=== PATIENT | male | born 1955 | race Caucasian/White ===

== ENCOUNTER 2017-01-03 07:17 | Inpatient (IN) ==
[2017-01-03] MEDS ORDERED: 0.9 % Sodium Chloride 1,000 ML ONE ×2 (07:21→07:24)
[2017-01-03] MEDS ORDERED: *HR* Heparin 5,000 UNIT/ML VIAL ONE (07:21)
--- NOTE | 2017-01-03 07:21 | Emergency Department Note ---
Disposition Clinical Impression: STEMI (ST elevation myocardial infarction) Qualifiers: Involved coronary artery: unspecified coronary artery Qualified Code(s): I21.3 - ST elevation (STEMI) myocardial infarction of unspecified site Disposition: Admitted As Inpatient Condition: Fair Forms: ED Satisfaction Letter Time of Disposition: 07:23 Chest Pain HPI - General Chief Complaint: ED Chest Pain Stated Complaint: STEMI Time Seen by Provider: 01/03/17 07:18 Source: patient, EMS Mode of arrival: EMS Limitations: no limitations Vital Signs Reviewed: Yes Nursing Notes Reviewed: Yes - History of Present Illness HPI Narrative: Patient developed left-sided and substernal chest pain several hours ago. He also notes dyspnea. He presents to the emergency Department from home by EMS with a prehospital ECG transmitted indicating a STEMI Pt complaint: chest pain Onset (ago): hour(s) Duration: constant Onset: during rest Pain Location: substernal, left chest Severity: moderate Quality: tightness Pain Radiation: none Improves with: nothing Worsens with: nothing Associated symptoms: Reports: dyspnea Treatments prior to arrival chest pain: aspirin - Related Data On Oral Contraceptives: No Allergies Allergy/AdvReac Type Severity Reaction Status Date / Time No Known Allergies Allergy Verified 01/03/17 07:23 All systems ED: reviewed and negative except as stated. Constitutional: Reports: as per HPI Eyes: Reports: as per HPI ENT ED: Reports: as per HPI Cardiovascular: Reports: chest pain Respiratory: Reports: cough, dyspnea Gastrointestinal: Reports: as per HPI Genitourinary: Reports: as per HPI Musculoskeletal: Reports: as per HPI Integumentary: Reports: as per HPI Neurological: Reports: as per HPI Psychiatric: Reports: as per HPI Endocrine: Reports: as per HPI Hematological/Lymphatic: Reports: as per HPI Allergic/Immunologic: Reports: as per HPI Chest Pain PMH - Past Medical History Medical history: Reports: no medical history - Social History Smoking Status: Current every day smoker Alcohol use: Reports: none Drug use: Reports: none Physical Exam - General Limitations: no limitations General appearance: alert, anxious - Head Head exam: atraumatic - Eye Eye exam: Present: normal appearance - ENT ENT exam: normal exam - Neck Neck exam: Present: normal inspection, full ROM - Chest Chest inspection: Present: normal inspection, symmetric chest wall rise - Respiratory Respiratory exam: Present: normal lung sounds bilaterally - Cardiovascular Cardiovascular exam: Present: regular rate, normal rhythm, normal heart sounds - Rectal Exam Rectal exam: Present: deferred - Extremities Exam Extremities exam: Present: normal inspection - Neurological Exam Neurological exam: Present: alert, oriented X3, CN II-XII intact - Psychiatric Psychiatric exam: Present: normal affect, anxious - Skin Skin exam: Present: warm, dry, intact Course Course Narrative: She presents with chest pain. ECG shows an ST segment elevation pattern in the inferior leads. There are reciprocal changes. STEMI alert activated Vital Signs Temperature 97.5 F L 01/03/17 07:17 Pulse Rate 92 01/03/17 07:17 Respiratory Rate 20 01/03/17 07:17 Blood Pressure 131/97 01/03/17 07:17 O2 Sat by Pulse Oximetry 95 01/03/17 07:17 Temperature 97.5 F L 01/03/17 07:17 Pulse Rate 92 01/03/17 07:17 Respiratory Rate 20 01/03/17 07:17 Blood Pressure 131/97 01/03/17 07:17 O2 Sat by Pulse Oximetry 95 01/03/17 07:17 Oxygen Delivery Oxygen Delivery Room Air Chest Pain - Radiology Data Radiology results reviewed: Yes I reviewed the patient's radiology results. portable CXR image reviewed by ne - EKG Data EKG attestation: Yes I reviewed and interpreted this EKG. EKG results narrative: Sinus tachycardia rate 106 PVCs right axis deviation and right bundle branch block. ST segment elevation in leads 2, 3, aVF. ST segment depression in leads aVL and V1 through V3.
[2017-01-03] MEDS ORDERED: Nitroglycerin 1,000 MCG/10 ML VIAL IV ONE (07:24)
[2017-01-03] MEDS ORDERED: *HR* Heparin 10,000 UNIT/10 ML VIAL ONE (07:24)
[2017-01-03] MEDS ORDERED: *HR* Ticagrelor 90 MG TABLET PO ONE (07:24)
[2017-01-03] MEDS ORDERED: *HR* Midazolam HCl 2 MG/2 ML VIAL ONE (07:24)
[2017-01-03] MEDS ORDERED: Heparin 1,000 UNITS/500 mL NS 500 ML ONE (07:24)
[2017-01-03] MEDS ORDERED: Verapamil 5 MG/2 ML VIAL ONE (07:24)
[2017-01-03] MEDS ORDERED: *HR* Heparin 5,000 UNIT/ML VIAL IVP ONE (07:24)
[2017-01-03] MEDS: *HR* Ticagrelor 90 MG TABLET ONE ×2 (07:24→07:25)
[2017-01-03] MEDS ORDERED: *HR* FentaNYL (PF) 100 MCG/2 ML VIAL ONE (07:24)
[2017-01-03] MEDS ORDERED: *HR* LORazepam 2 MG/ML VIAL IVP ONE (07:31)
[2017-01-03 07:32] LABS: Basophils % 0.3 %; Eosinophils # 0.1 K/mcL (0.0-0.6); Hematocrit 48.1 % (37.5-50.1); Hemoglobin 16.7 g/dL (12.9-16.9); Immature Granulocytes % 0.4 % (0-4); Immature Platelets 2.6 % (1.1-6.1); Lymphocytes # 2.2 K/mcL (0.6-4.6); Lymphocytes % 24.1 %; Mean Corpuscular HGB Conc 34.7 g/dL (31.6-35.5); Mean Corpuscular Volume 106.7 fL (83.0-100.0); Mean Platelet Volume 9.2 fL (9.4-12.4); Monocytes # 0.5 K/mcL (0.0-1.3); Monocytes % 5.4 %; Neutrophils # 6.1 K/mcL (1.6-8.9); Platelet Count 196 K/mcL (140-400); Red Blood Count 4.51 M/mcL (4.19-5.50); Red Cell Distribution Width 13.1 % (11.5-14.5); Segmented Neutrophils % 68.8 %
[2017-01-03 07:46] LABS: BUN/Creatinine Ratio 16 (6-26); Blood Urea Nitrogen 16 mg/dL (8-26); Calcium 9.4 mg/dL (8.6-10.8); Carbon Dioxide 25 mEq/L (19-29); Chloride 106 mEq/L (98-109); Glucose 172 mg/dL (70-99); Magnesium 1.8 mg/dL (1.6-2.6); Osmolality,Calculated 297 (280-300); Potassium 3.7 mEq/L (3.5-4.5); Sodium 141 mEq/L (136-145); eGFR For African Americans > 60 (> 60); eGFR For Non-African Americans > 60 (> 60)
--- NOTE | 2017-01-03 07:46 | Cardiology History & Physical ---
Date of Encounter: 01/03/17 Time of Encounter: 07:46 Assessment and Plan (1) STEMI (ST elevation myocardial infarction) Current Visit: Yes Status: Acute He presents with an acute inferior wall STEMI. Emergent cardiac catheterization recommended. The assessment and plan as outlined above was discussed with the patient and/or family members who expressed understanding and agreement. All questions were answered. Qualifiers: Involved coronary artery: right coronary artery Qualified Code(s): I21.11 - ST elevation (STEMI) myocardial infarction involving right coronary artery History of Present Illness Chief complaint: Chest pain HPI: Mr. Garcia is a 61 year old male with no prior past medical history presented with sudden onset of chest discomfort described as pressure. ECG consistent with acute inferior wall NV. Patient does have history of tobacco abuse. Past Med Surg Social Fam HX - Past Medical History Medical history: no medical history Psychiatric history: no psych history - Social History Smoking Status: Current every day smoker Smokeless Tobacco Status: No Alcohol use: none Drug use: none Medications and Allergies Allergies No Known Allergies Allergy (Verified 01/03/17 07:23) All Systems Review: A 10-system review of systems was performed and is negative for pertinent findings except as documented above in the HPI. Physical Examination General: Conversant, No Apparent Distress HEENT: Atraumatic, Normocephaly, Mucus Membranes Moist, Other (Edentulous) Neck: No JVD, Normal carotid pulses Cardiac: Reg Rate and Rhythm, Normal S1 and S2, No Murmur Lungs: Normal Breath Sounds, No Wheeze, Rales, Rhonchi Neuro: Alert and responsive, No focal deficits noted Abdomen: Soft, Non-Tender Skin: No rashes noted on visualized skin Musculoskeletal: No Chest Wall Tenderness Extremities: No Clubbing, No Cyanosis, No Edema, Normal Pulses Results 01/03/17 07:22 01/03/17 07:22 - EKG Interpretation EKG results cardiology: sinus rhythm (Sinus rhythm, ST elevation in the inferior leads, acute inferior NV)
[2017-01-03 07:47] LABS: Prothrombin Time 10.9 Seconds (9.4-12.1)
--- NOTE | 2017-01-03 07:47 | Pre-Sedation Evaluation ---
Pre-sedation evaluation - Pre-sedation checklist Date of procedure: 01/03/17 Procedure: Cardiac cath Recent Vitals: Last Vital Signs Temp 97.5 F L 01/03/17 07:17 Pulse 90 01/03/17 07:26 Resp 20 01/03/17 07:45 BP 133/84 01/03/17 07:45 Pulse Ox 100 01/03/17 07:26 H&P (including ROS) documented in medical record: Yes Previous reaction to sedatives/anesthetics: No Dietary Status: No solid food in preceding 4 hrs and no liquid in preceding 2 hrs Airway Assessment: Patient can open mouth completely, TMJ function normal Dentition: No loose teeth or bridges Possible difficult airway: No ASA Classification *see protocol: CLASS II-Mild systemic disease Plan of Care: Pt appropriate candidate for procedure/moderate/conscious sedation
[2017-01-03 07:49] LABS: Activated Partial Thrombo Time 24.7 Seconds (26.0-36.0)
[2017-01-03] MEDS ORDERED: Tirofiban 5 MG/100ML 5 MG/100 ML BAG IV ONE (08:08)
--- NOTE | 2017-01-03 09:00 | Invasive Diagnostic Lab Proc ---
Name: Joe Garcia Date of Study: 01/03/2017 Date: 1955 Ht: 68.1in Medical Record#: [id number] Age: 61 Wt: 158.73lb Gender: Male BSA: 1.85 Order #: [id number] BMI: 24.06 Physicians Procedure Physician: Lenny Roberto MD Referring MD: Referring MD: Staff Name Position Time In Sites, [facility] RT (R) Monitor 07:40 AM Laura King RT Scrub 07:40 AM Irina Monaco RN 07:40 AM Indications Indication STEMI Procedures Performed Procedure PRQ CARD REVASC MO 1 VSL L HRT ARTERY/VENTRICLE ANGIO PRQ CARDIAC ANGIO ADDL ART Pre-Procedure Checklist Informed consent is complete signed and on chart. H&P is on chart. ID band is on and ID verified with patient. Patient NPO for procedure The procedure was described for the patient and questions were answered. Blood Pressure: 138/80 ECG is on chart. Rhythm: Atrial Fib/Flutter Plan of Care Patient will tolerate the procedure without complications. Adequate level of comfort will be maintained. Hemodynamics will remain stable Patient will recover from procedure without complications. Respiratory function will be maintained. Cardiac rhythm will remain stable. Patient temperature will be maintained. Patient and/or family have verbalized understanding of the procedure. Patient Education Chief Complaint/Reason for Test: Cardiac Cath Developmental Category: Adult (18-64 years) Developmentally Appropriate for Age: Yes Learning Barriers: None Education Needs: Procedure Education Method: Verbal Information Taught: Cardiac Cath Educational Evaluation: Able to repeat information Intravenous Access Time IV Size Location DC'd Fluid/Drip Rate Units RN 20g 1 1/4" Patent On Arrival Lt Wrist 0.9NaCl Irina Monaco RN 18g 1 1/4" Patent On Arrival Rt Antecubital Irina Monaco RN Allergies No Known Allergies Vital Signs Time BP (mmHg) HR (bpm) O2 Sat. RR (bpm) LOC 138 / 80 100 92 % 16 4 = Oriented but drowsy 07:42 AM 110 / 90 109 89 % 31 07:47 AM 138 / 89 107 86 % 20 07:51 AM 138 / 80 100 88 % 12 07:56 AM 124 / 59 96 90 % 20 08:01 AM 134 / 90 101 87 % 28 08:07 AM 93 / 52 44 89 % 37 08:12 AM 122 / 81 93 90 % 33 08:16 AM 127 / 115 94 94 % 42 08:17 AM 98 / 68 100 95 % 35 08:20 AM 103 / 62 78 92 % 45 08:21 AM 91 / 58 66 98 % 24 08:27 AM 99 / 62 82 91 % 40 08:31 AM 99 / 65 76 98 % 38 08:37 AM 103 / 67 81 94 % 32 08:41 AM 106 / 70 83 94 % 31 Procedural Medications Time Medication Dose Units Method Given By 07:40 AM Oxygen 2 L/min nasal cannula Irina Monaco RN 07:42 AM Oxygen 6 L/min Oxy Mask Irina Monaco RN 07:42 AM Versed 2 mg Intravenous Irina Monaco RN 07:43 AM Fentanyl 50 mcg Intravenous Irina Monaco RN 07:47 AM Oxygen 10 L/min Oxy Mask Irina Monaco RN 07:51 AM Lidocaine 2% 16 ml Subcutaneous Lenny Roberto MD 08:11 AM Aggrastat Bolus: 37.5 ml Intravenous Irina Monaco RN 08:11 AM Aggrastat 5mg/100ml 6.75 ml Intravenous Irina Monaco RN 08:41 AM Heparin 2000 units Intravenous Irina Monaco RN ASA Classification: Emergent Procedure: ASA score is assumed Ronald Score Preprocedure Postprocedure Activity 2- Moves 4 extremities sustained head lift Activity 2- Moves 4 extremities sustained head lift Circulation 2- SBP +/= 20 points of pre-anesthetic level Circulation 2- SBP +/= 20 points of pre-anesthetic level Consciousness 2- Awake and alert oriented x 3 Consciousness 2- Awake and alert oriented x 3 O2 Saturation 2- Able to maintain O2 satruation of 92% on room air O2 Saturation 2- Able to maintain O2 satruation of 92% on room air Respiratory 2- Able to deep breathe and cough well Respiratory 2- Able to deep breathe and cough well Total Score 10 Total Score 10 Contrast Agent: Isovue Diagnostic Contrast: 82 ml Total Contrast: 82 ml Fluoro Dose: 773 mGy Activated Clotting Time Time Seconds to Clot 08:01 AM 256 08:40 AM 178 Procedure Log Time Note Enter By 07:37 AM Pt arrived to cleaner laboratory equipment 2 at 07:37 tsites 07:40 AM Lien Zuluaga (R) Position: Monitor Time in: 07:40 tsites 07:40 AM Laura King RT Position: Scrub Time in: 07:40 tsites 07:40 AM Irina Monaco RN Position: Stone Rubber Time in: 07:40 tsites 07:40 AM Patient charges- Angio tray pack, Navilyst 3mm J, Pulse Oximetry and ACIST tubing and transducer tsites 07:40 AM Case Delayed No tsites 07:40 AM Hair removed from procedure site in emergency department using clippers. Bilateral groin prepped with Chloraprep by Irina Monaco RN, safety strap applied then patient was draped. Skin intact. tsites 07:40 AM Physician arrived 07:40 tsites 07:40 AM Meet and greet completed tsites 07:41 AM Time: 07:40 Oxygen on at 2 L/min per nasal cannula by Irina Monaco RN tsites 07:41 AM Clinical Presentation: STEMI or equivalent tsites 07:41 AM CathStat 07:41 AM Vitals capture started with the following parameters, Patient=Adult, Interval=5 min, Initial Zoaaqgcf=921 mmHg, Deflation Rate=5 mmHg, Cuff placed on Left Arm 07:42 AM LM=118 bpm, PLUD=251/90 mmhg, SpO2=89 %, Resp=31 B/min 07:42 AM Time: 07:42 Oxygen on at 6 L/min per Oxy Mask by Irina Monaco RN tsites 07:43 AM Time: 07:42 Versed 2 mg Intravenous Given by Irina Monaco RN tsites 07:43 AM Time: 07:43 Fentanyl 50 mcg Intravenous Given by Irina Monaco RN tsites 07:46 AM Recorded ECG: LZ=243 Condition=Condition 1 07:46 AM Pressure channel 1 zeroed. 07:47 AM IX=936 bpm, LHWX=592/89 mmhg, SpO2=86.0 %, Resp=20 B/min 07:47 AM Time: 07:47 Oxygen on at 10 L/min per Oxy Mask by Irina Monaco RN tsites 07:50 AM Procedure start 07:50 tsites 07:50 AM Time out performed according to hospital policy tsites 07:51 AM Time: 07:51 16 ml Lidocaine 2% to right groin Subcutaneous Given by Lenny Roberto MD tsites 07:51 AM MR=790 bpm, WQNM=315/80 mmhg, SpO2=88.0 %, Resp=12 B/min 07:56 AM Micro-Introducer Kit utilized for sheath placement tsites 07:56 AM Access obtained by percutaneous puncture. 6Fr 10cm Terumo [place] sheath placed in right Femoral artery. [id number] tsites 07:56 AM ACT drawn tsites 07:56 AM 5Fr FL 4 catheter inserted over the wire DNC tsites 07:56 AM 0.035 145cm Navilyst 3mmJ wire [id number] tsites 07:56 AM LCA angiography performed in multiple views. tsites 07:56 AM HR=96 bpm, GOOH=221/59 mmhg, SpO2=90 %, Resp=20 B/min 07:57 AM Recorded Pressure: Ao, HR=99, Condition=Condition 1 (Aorta) Ao 107/62/89 07:58 AM wire reinserted catheter removed tsites 07:58 AM PCI Status Emergency tsites 07:59 AM 6Fr JR 4 SH Runway guide catheter was used to cannulate the PCI vessel successfully. reused? No tsites 07:59 AM Inflation device was opened. tsites 08:00 AM Recorded Pressure: LV, DS=122, Condition=Condition 1 (Left Ventricle) LV 140/29/33 08:01 AM RCA angiography performed in multiple views. tsites 08:01 AM WD=407 bpm, CTCE=950/90 mmhg, SpO2=87.0 %, Resp=28 B/min 08:02 AM At 08:01 the ACT was 256 seconds. tsites 08:03 AM Lesion found in Mid RCA. Pre Stenosis: 100 Pre MARLINE Flow: 0: No Flow/No perfusion tsites 08:03 AM Recorded Pressure: Ao, HR=99, Condition=Condition 1 (Aorta) Ao 125/78/101 08:03 AM Right Coronary, Right Posterior Descending Arteries with Right Posterolateral and Acute Marginal branches with 100 % stenosis. If graft is supplying this area, 0 % stenosis tsites 08:04 AM .014 ChoICE PT Extra Support 190cm guide wire across target lesion- successful. reused? No tsites 08:05 AM pronto thrombectomy pass # 1 for 10 ml total fluid. tsites 08:07 AM HR=44 bpm, NIBP=93/52 mmhg, SpO2=89 %, Resp=37 B/min 08:07 AM 2.5 mm x 20 mm Emerge Monorail balloon across target lesion- successful. reused? No tsites 08:09 AM Balloon inflated @ 14 jose for 11 seconds tsites 08:09 AM pt very restless . had to stop several times and re prep the groin tsites 08:10 AM Balloon inflated @ 14 jose for 7 seconds tsites 08:10 AM Balloon inflated @ 14 jose for 9 seconds tsites 08:11 AM Time: 08:11 Aggrastat Bolus: 37.5 ml Intravenous Given by Irina Monaco RN Craft pump tsites 08:12 AM Time: 08:11 Aggrastat 5mg/100ml 6.75 ml Intravenous Given by Irina Monaco RN Craft pump tsites 08:12 AM Balloon catheter removed intact. tsites 08:12 AM HR=93 bpm, OZGC=679/81 mmhg, SpO2=90 %, Resp=33 B/min 08:12 AM 3.0mm x 38mm Synergy drug-eluting stent across target lesion- successful Lot #[id number] tsites 08:13 AM Stent deployed @ 16 jose for 10 seconds tsites 08:13 AM Stent delivery system removed intact. tsites 08:15 AM 3.5 mm x 20mm NC Emerge balloon across target lesion- successful. reused? No tsites 08:15 AM NIBP STAT measurement started. 08:16 AM Balloon inflated @ 20 jose for 6 seconds tsites 08:16 AM HR=94 bpm, KNSO=713/115 mmhg, SpO2=94 %, Resp=42 B/min 08:16 AM Balloon inflated @ 20 jose for 6 seconds tsites 08:17 AM NIBP STAT measurement started. 08:17 AM Balloon inflated @ 20 jose for 9 seconds tsites 08:17 AM CX=906 bpm, NIBP=98/68 mmhg, SpO2=95 %, Resp=35 B/min 08:17 AM Balloon catheter removed intact. tsites 08:19 AM NIBP STAT measurement started. 08:20 AM .014 Whisper 180cm guide wire across target lesion- successful. reused? No tsites 08:20 AM HR=78 bpm, BMFR=560/62 mmhg, SpO2=92 %, Resp=45 B/min 08:21 AM HR=66 bpm, NIBP=91/58 mmhg, SpO2=98 %, Resp=24 B/min 08:23 AM 2.5 mm x 14 mm Emerge Monorail balloon across target lesion- successful. reused? No tsites 08:24 AM Balloon inflated @ 8 jose for 60 seconds tsites 08:25 AM Coronary Dominance: right tsites 08:25 AM Balloon inflated @ 12 jose for 60 seconds tsites 08:27 AM Balloon catheter removed intact. tsites 08:27 AM HR=82 bpm, NIBP=99/62 mmhg, SpO2=91.0 %, Resp=40 B/min 08:28 AM Guide wire x2 removed intact. tsites 08:28 AM Guide catheter removed intact. tsites 08:28 AM 5Fr Pigtail catheter inserted over the wire DNC tsites 08:29 AM Recorded Pressure: LV, HR=84, Condition=Condition 1 (Left Ventricle) LV 103/9/26 08:29 AM Catheter selectively placed in left ventricle tsites 08:29 AM Bolus angiogram of left Ventricle complete: 10 ml/sec for a total of 20 mls tsites 08:30 AM Recorded Pressure: LV, Ao, HR=84, Condition=Condition 1 (Left Ventricle) LV 110/30/25, (Aorta) Ao 103/64/83 08:31 AM Catheter removed tsites 08:31 AM HR=76 bpm, NIBP=99/65 mmhg, SpO2=98.0 %, Resp=38 B/min 08:32 AM suturing sheath in place tsites 08:33 AM Procedure completed at 08:33 tsites 08:33 AM Sign out completed: Radiation Dose 773 mGy Fluoro Time: 9.3 Isovue 370 - 500ml contrast 82 ml given by Lenny Roberto MD. Complications: NoneCardiac Rehab Consult needed: YesConfirmed administered medications: Yes tsites 08:34 AM Isovue 370 - 500ml,1 Bottle(s) used. tsites 08:34 AM Sheath left in place to be pulled on floor/holding area tsites 08:34 AM Post ECG Atrial Fib/Flutter tsites 08:34 AM Post Blood Pressure 99/65 tsites 08:37 AM 08:36 Post Pulses Bilateral DP & PT 1+ tsites 08:37 AM Information taught Cardiac Cath and PCI tsites 08:37 AM Education needs Procedure, Plan of Care, and Responsibilities of Patient in Care tsites 08:37 AM Learning barriers :None tsites 08:37 AM Education Methods Verbal tsites 08:37 AM Education evaluation Able to repeat information tsites 08:37 AM Site status No bleeding/hematoma - Rt Groin as reported by Laura King RT at 08:37 tsites 08:37 AM Opsite applied tsites 08:37 AM HR=81 bpm, NNQW=446/67 mmhg, SpO2=94 %, Resp=32 B/min 08:37 AM Plavix, Effient or Brilinta given Yes in ER tsites 08:37 AM ACT drawn tsites 08:40 AM At 08:40 the ACT was 178 seconds. tsites 08:41 AM Time: 08:41 Heparin 2000 units Intravenous Given by Irina Monaco RN tsites 08:41 AM HR=83 bpm, GDZA=043/70 mmhg, SpO2=94 %, Resp=31 B/min 08:43 AM Lesion found in Right PDA. Pre Stenosis: 99 Pre MARLINE Flow: tsites 08:43 AM Lesion found in Mid Circumflex. Pre Stenosis: 30 Pre MARLINE Flow: tsites 08:44 AM Circumflex, Obtuse Marginal, Left Posterior Descending, and Left Posterolateral Coronary Arteries with 30 % stenosis. If graft is supplying this area, 0 % stenosis tsites 08:46 AM Vitals capture stopped. 08:54 AM Report given to amelia HUDSON Pt taken to ICU Room #10. 08:53 tsites 08:54 AM Delay to floor No tsites 08:54 AM Patient out of room: 08:54 tsites Complications Complication None Hemodynamics Pressures Site Systolic/A Wave Diastolic/V Wave Mean AO 107 62 89 LV 140 29 33 AO 125 78 101 LV 103 9 26 LV 110 30 25 AO 103 64 83 Post Procedure Information Blood Pressure: 99/65 mmHg Rhythm: Atrial Fib/Flutter Post procedural instructions were given Closure Device Time Device Success/Fail 01/03/2017 8:38:00 AM Manual Compression Site Checks Time Location Status Staff Sheath In? Note 08:37 AM Rt Groin No bleeding/hematoma Laura King RT Pulses Time Site Pre-Procedure Post-Procedure Note Bilateral DP & PT 1+ Bilateral radial 2+ 8:36:00 AM Bilateral DP & PT 1+ Updated by Lien Zuluaga RT (R) on 01/03/2017 8:54:10 AM Lien Zuluaga RT electronically signed on 01/03/2017 8:54:48 AM with status of Final
--- NOTE | 2017-01-03 09:04 | Procedure Note ---
Date of procedure: 01/03/17 Pre-op diagnosis: Acute inferior wall CO Post-op diagnosis: same Procedure: Cardiac catheterization performed: LM-normal, LAD-normal, see ex-30% mid, RCA- 100% mid with left to right collaterals, RPDA-99% ostial, LVEF-35% with inferior hypokinesis. PCI: RCA 100% to 0% with a 3.0 mm x 38 mm synergy stent postdilated with a 3.5 mm NC balloon to 20 jose. RPDA 99% to 10% with POBA using a 2.5 mm balloon. Plan: 1. Aspirin 81 mg daily indefinitely 2. Brilinta for a minimum of 1 year 3. LAMAR inhibitor and Coreg 4. Statin 5. Smoking cessation Anesthesia: IV sedation Surgeon: Lenny Roberto Estimated blood loss (cc): 20 Pathology: none sent Condition: stable Disposition: ICU
[2017-01-03] MEDS ORDERED: Tirofiban 12.5 MG/250ML 12.5 MG/250 ML BAG IVC SCH (09:15)
[2017-01-03] MEDS ORDERED: *HR* Morphine 2 MG/ML SYRINGE IVP PRN (09:15)
--- NOTE | 2017-01-03 09:38 | Invasive Diagnostic Lab ---
Name: Joe Garcia Date of Study: 01/03/2017 Date: 1955 Ht: 173.0 cm /68.1 in Medical Record#: [id number] Age: 61 Wt: 72. kg / 158.73 lb Account/Order#: [id number] Gender: Male BSA: 1.85 Order #: [id number] Fluoro Dose: 773 mGy BMI: 24.06 Procedure Physician: Lenny Roberto MD Referring MD: Referring MD: Procedures Performed: PCI of Acute ME LEFT HEART CATH PTCA each add'l branch Indications: STEMI Impressions: There is severe two vessel coronary artery disease. LV- EF35% Patient had successful PTCA/Drug-Eluting Stent placement in the mid RCA. Patient had successful PTCA in the PDA. Recommendations: Optimal medical therapy of patient's disease. Aggressive risk factor modification. Patient being referred for cardiac rehab. History/Risk Factors: Current/Recent Smoker Procedure Access obtained in the right Femoral artery by percutaneous puncture Patient had successful PTCA in the PDA. Patient had successful PTCA/Drug-Eluting Stent placement in the mid RCA. Complications: None Contrast: Isovue 82ml Closure Device: Manual Compression Hemodynamics: Pressures Site Systolic/ A Wave Diastolic/ V Wave End Diastolic/ Mean HR AO 107 62 89 99 LV 140 29 33 103 AO 125 78 101 99 LV 103 9 26 84 LV 110 30 25 88 AO 103 64 83 81 LV Ventriculography Ejection Method: LV Gram Wall Motion: CARRILLO Anterobasal Normal Anterolateral Normal Apical: Normal Inferoapical Moderate Hypokinesis Inferobasal Moderate Hypokinesis Coronary Dominance: right Lesion Findings/Interventions * Left Main Coronary Artery The LMCA is angiographically free of disease. * Left Anterior Descending The LAD is angiographically free of disease. The 1st Diagonal is angiographically free of disease. * Circumflex There is a 30% stenosis in the Mid Circumflex. * Right Coronary Artery There is a 38 mm long, 100% stenosis in the Mid RCA. The lesion has a MARLINE flow of 0, has no thrombus present, and has collaterals which feed from left to right. An intervention was performed on the Mid RCA with a final stenosis of 0%. There were no lesion complications. The final MARLINE flow was 3. There is a 14 mm long, 99% stenosis in the Right PDA. The lesion has a MARLINE flow of 2 and has no thrombus present. An intervention was performed on the Right PDA with a final stenosis of 0%. There were no lesion complications. The final MARLINE flow was 3. Interventional Device(s) Vessel Segment Type Name Diameter (mm) Length (mm) Mid RCA Extraction Catheter pronto Mid RCA Balloon Emerge Monorail 2.5 20 Mid RCA Drug Eluting Stent Synergy 3 38 Mid RCA Balloon NC Emerge 3.5 20 Right PDA balloon Emerge Monorail 2.5 14 Updated by Lien Zuluaga RT (R) on 01/03/2017 8:51:28 AM Lenny Roberto MD electronically signed on 01/03/2017 9:33:20 AM with status of Final
[2017-01-03] MEDS: 0.9 % Sodium Chloride 1,000 ML IVC SCH (10:38)
[2017-01-03] MEDS: *HR* Ticagrelor 90 MG TABLET PO SCH (20:13)
[2017-01-04 03:57] LABS: Basophils % 0.2 %; Eosinophils # 0.1 K/mcL (0.0-0.6); Immature Granulocytes % 0.3 % (0-4); Lymphocytes # 2.9 K/mcL (0.6-4.6); Lymphocytes % 31.1 %; Mean Corpuscular HGB Conc 34.6 g/dL (31.6-35.5); Mean Corpuscular Hemoglobin 37.6 pg (28.0-33.3); Mean Corpuscular Volume 108.5 fL (83.0-100.0); Mean Platelet Volume 9.4 fL (9.4-12.4); Monocytes # 0.6 K/mcL (0.0-1.3); Monocytes % 6.2 %; Neutrophils # 5.7 K/mcL (1.6-8.9); Platelet Count 138 K/mcL (140-400); Red Blood Count 3.78 M/mcL (4.19-5.50); Red Cell Distribution Width 13.5 % (11.5-14.5); Segmented Neutrophils % 61.2 %
[2017-01-04 04:00] LABS: Hemoglobin 14.2 g/dL (12.9-16.9)
[2017-01-04 04:16] LABS: Alanine Aminotransferase 37 Units/L (0-55); Alkaline Phosphatase 82 Units/L (38-126); Aspartate Amino Transferase 176 Units/L (5-34); BUN/Creatinine Ratio 16 (6-26); Bilirubin,Direct 0.2 mg/dL (0.0-0.5); Bilirubin,Indirect 0.5 mg/dL (0.0-1.2); Bilirubin,Total 0.7 mg/dL (0.2-1.2); Blood Urea Nitrogen 12 mg/dL (8-26); Calcium 8.3 mg/dL (8.6-10.8); Carbon Dioxide 21 mEq/L (19-29); Chloride 111 mEq/L (98-109); Globulin 2.9 g/dL (2.4-3.5); Glucose 102 mg/dL (70-99); Osmolality,Calculated 288 (280-300); Potassium 3.9 mEq/L (3.5-4.5); Sodium 139 mEq/L (136-145); Total Protein 5.9 g/dL (6.0-8.3); eGFR For African Americans > 60 (> 60); eGFR For Non-African Americans > 60 (> 60)
[2017-01-04] MEDS: 0.9 % Sodium Chloride 1,000 ML IVC SCH (05:05)
[2017-01-04] MEDS ORDERED: *HR* Enoxaparin 40 MG/0.4 ML SYRINGE SQ SCH (06:00)
[2017-01-04] MEDS: *HR* Ticagrelor 90 MG TABLET PO SCH ×2 (07:44→20:19)
--- NOTE | 2017-01-04 08:49 | Internal Medicine Consult Note ---
Date of Encounter: 01/04/17 Time of Encounter: 07:30 Internal Medicine - CN: HPI - Data of Consult Patient: new to practice Consult date: 01/04/17 Requesting Physician: Lenny Roberto MD - Consult Narrative Reason for consult: Medical management History of present illness: Mr. Garcia is a 61 year old male present to ER for chest pain. Patient said pain started from yesterday, sharp, 4 out of 10, with diaphoresis and mild shortness of breath. Patient also complaining of cough since yesterday, with small amount whitish/yellowish sputum. Patient denies runny nose, sore throat , feels mild chills but no fever. Yesterday in ER, pt was found STEMI and immediately had LHC. He was found RCA stenosis and stent was placed. When I saw patient today, he has no chest pain or shortness of breath, his cough has improved. PMH: Pt denies diabetes or hypertension. He is not on any medication at home. PSH: Hernia repair many years ago. SH: Smoker, 10 cigarettes per day for many years (patient said he cannot remember how many years) A/P: 1. STEMI: S/P LHC, per cardio team 2. Cough: CXR shows question pneumonia and question pleural plaque. Patient has cough. Patient is a smoker for many years. We will check CT chest to further rule out pneumonia or other lung disease. Currently patient has no fever, no WBC elevation. Cough has improved. 3. Tobacco abuse: Smoking cessation education. Patient said he does not need nicotine patch. Past Med Surg Social Fam HX - Past Medical History Medical history: no medical history Psychiatric history: no psych history - Past Surgical History Surgical History: herniorrhaphy - Social History Smoking Status: Current every day smoker Packs per day: 0.5 Smokeless Tobacco Status: No Alcohol use: none Drug use: none - Family History Brother Hx Family Cardiac Disorders: Yes Internal Medicine - CN: Meds Allergies No Known Allergies Allergy (Verified 01/03/17 07:23) Internal Medicine - CN: Exam - Constitutional Vitals: Temp Pulse Resp BP Pulse Ox 98.2 F 89 22 90/60 95 01/04/17 07:00 01/04/17 08:00 01/04/17 08:00 01/04/17 08:00 01/04/17 08:00 General appearance IM: Present: A&O X 3, no acute distress, answers questions appropriately - Head Head exam: Present: atraumatic, normocephalic - Eye Pupils: Present: PERRL - ENT ENT exam: Present: normal external ear exam - Neck Neck exam general surgery: Present: full ROM. Absent: lymphadenopathy - Respiratory Respiratory exam: Present: CTAB. Absent: accessory muscle use, chest wall tenderness, rales, rhonchi, wheezes - Cardiovascular Cardiovascular exam IM: Present: RRR, +S1, +S2 - GI/Abdominal GI/Abdominal exam IM: Present: soft. Absent: tenderness - Extremities Exam Extremities exam IM: Present: warm. Absent: calf tenderness, pedal edema - Back Exam Back exam: Present: full ROM - Neurological Exam Neurological exam: Present: CN II-XII intact, oriented X3, no focal deficits. Absent: pronater drift, facial droop, speech deficit Internal Medicine - CN: Reslt - Labs CBC & Chem 7: 01/04/17 03:41 01/04/17 03:41 Labs: Short CBC 01/04/17 Range/Units 03:41 WBC 9.3 (4.3-11.1) K/mcL Hgb 14.2 D (12.9-16.9) g/dL Hct 41.0 (37.5-50.1) % Plt Count 138 L (140-400) K/mcL Neutrophils # 5.7 (1.6-8.9) K/mcL BMP 01/04/17 03:41 Sodium 139 Potassium 3.9 Chloride 111 H Carbon Dioxide 21 BUN 12 Creatinine 0.73 Glucose 102 H Calcium 8.3 L Liver Function 01/04/17 Range/Units 03:41 Total Bilirubin 0.7 (0.2-1.2) mg/dL Direct Bilirubin 0.2 (0.0-0.5) mg/dL AST 176 H (5-34) Units/L ALT 37 (0-55) Units/L Alkaline Phosphatase 82 (38-126) Units/L Albumin 3.0 L (3.5-5.0) g/dL - ABG Interpretation ABG results: PT/INR, D-dimer PT 10.9 Seconds (9.4-12.1) 01/03/17 07:22 Consult Discharge Plan - Plan Referrals: NO,PCP [Primary Care Provider] -
[2017-01-04] MEDS ORDERED: Aspirin 81 MG TAB.CHEW PO SCH (09:00)
--- NOTE | 2017-01-04 09:00 | Cardiology Progress Note ---
Date of Encounter: 01/04/17 Time of Encounter: 08:57 Assessment and Plan (1) S/P right coronary artery (RCA) stent placement Current Visit: Yes Status: Acute (2) STEMI (ST elevation myocardial infarction) Current Visit: Yes Status: Acute Inferior STEMI s/p PCI to RCA (DEX x1) and POBA to RPDA. LVEF 35% by v-gram. Echocardiogram pending. Importance of DAPT for one year without interruption discussed (aspirin/Brilinta ). Continue statin/ACEi/BB therapy. CHF education provided. Echocardiogram pending. Possible d/c later today or AM pending progress. Okay to transfer to . Qualifiers: Involved coronary artery: right coronary artery Qualified Code(s): I21.11 - ST elevation (STEMI) myocardial infarction involving right coronary artery Discussion w patient/family: The assessment and plan as outlined above was discussed with the patient and/or family members who expressed understanding and agreement. All questions were answered. Thank you for involving us in the care of your patient. Please call with any questions. Subjective Principal diagnosis: STEMI Interval history: Patient reports feeling much better overall. No chest pain or discomfort. No complaints. Objective Vital Signs, Last 4 Hours Temp Pulse Resp BP Pulse Ox 01/04/17 08:00 89 22 90/60 95 01/04/17 07:54 90 01/04/17 07:00 98.2 F 90 22 97/70 94 01/04/17 06:00 73 20 91/69 94 01/04/17 05:00 97 16 95/64 93 General: Conversant, No Apparent Distress HEENT: Atraumatic, Normocephaly, Mucus Membranes Moist Neck: No JVD, Normal carotid pulses Cardiac: Reg Rate and Rhythm, Normal S1 and S2, No Murmur Lungs: Normal Breath Sounds, No Wheeze, Rales, Rhonchi Neuro: Alert and responsive, No focal deficits noted Abdomen: Soft, Non-Tender Skin: No rashes noted on visualized skin Musculoskeletal: No Chest Wall Tenderness Extremities: No Clubbing, No Cyanosis, No Edema Results 01/04/17 03:41 01/04/17 03:41 Lab Results 01/04/17 01/04/17 03:41 03:41 WBC 9.3 Hgb 14.2 D Hct 41.0 Plt Count 138 L Sodium 139 Potassium 3.9 Chloride 111 H Carbon Dioxide 21 BUN 12 Creatinine 0.73 Glucose 102 H Calcium 8.3 L Total Bilirubin 0.7 AST 176 H ALT 37 Alkaline Phosphatase 82 - Imaging and Cardiology Cardiac cath: report reviewed - VTE Documentation of Mechanical Device: Graduated compression elastic hosiery Consult Discharge Plan - Plan Referrals: NO,PCP [Primary Care Provider] -
[2017-01-04] MEDS ORDERED: *HR* Morphine 2 MG/ML SYRINGE IVP PRN (09:43)
[2017-01-04 09:50] LABS: Hemoglobin A1C 5.5 %
--- NOTE | 2017-01-04 14:32 | Electrocardiograph Report ---
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
--- NOTE | 2017-01-04 16:24 | Electrocardiograph Report ---
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
[2017-01-05] MEDS ORDERED: *HR* Enoxaparin 40 MG/0.4 ML SYRINGE SQ SCH (06:00)
[2017-01-05] MEDS: *HR* Ticagrelor 90 MG TABLET PO SCH (08:16)
[2017-01-05] MEDS ORDERED: Aspirin 81 MG TAB.CHEW PO SCH (09:00)
[2017-01-05 12:07] VITALS: BP 102/64
--- NOTE | 2017-01-05 13:13 | Discharge Summary ---
Date of Encounter: 01/05/17 Time of Encounter: 13:10 - Discharge Diagnosis (1) STEMI (ST elevation myocardial infarction) Priority: Primary Status: Acute Comments: Admitted 01/03/17 as inferior STEMI s/p PCI to RCA (LJ x1) and PTCA to RPDA. LVEF 35% by v-gram. Echocardiogram shows EF 40-45%, segmental systolic dysfunction, midl LVDD. Importance of DAPT for one year without interruption discussed (aspirin/Brilinta ). Pt verbalizes understanding. Continue statin/BB therapy. Attempted LAMAR-i, but BP will currently not tolerate. Re-evaluate as outpt. CHF education provided. Discharge home in stable condition. Qualifiers: Involved coronary artery: right coronary artery Qualified Code(s): I21.11 - ST elevation (STEMI) myocardial infarction involving right coronary artery (2) Cardiomyopathy Priority: Secondary Status: Acute Comments: EF 35% on v-gram during LHC. Echo shows EF 40-45%, segmental dysfunction s/p STEMI. Recommend rechecking echo as outpt. Continue BB. BP will not tolerate LAMAR-i currently. Attempt to add as outpt. Euvolemic on exam. CHF teaching given. Qualifiers: Cardiomyopathy type: ischemic Qualified Code(s): I25.5 - Ischemic cardiomyopathy (3) Tobacco abuse Priority: Secondary Status: Acute Comments: Smoking cessation counseling given. (4) S/P right coronary artery (RCA) stent placement Priority: Primary Status: Acute - Discharge Medications Prescriptions: Aspirin 81 mg PO DAILY #30 Atorvastatin [Lipitor] 40 mg PO HS #30 tab Carvedilol [Coreg] 3.125 mg PO BIDWM #60 tab Ticagrelor [Brilinta] 90 mg PO BID #60 tab Home Medications: Latanoprost [Xalatan] 1 drop BOTH EYES HS 01/04/17 [History] Aspirin 81 mg PO DAILY #30 01/05/17 [Rx] Atorvastatin [Lipitor] 40 mg PO HS #30 tab 01/05/17 [Rx] Carvedilol [Coreg] 3.125 mg PO BIDWM #60 tab 01/05/17 [Rx] Ticagrelor [Brilinta] 90 mg PO BID #60 tab 01/05/17 [Rx] Allergies/Adverse Reactions: Allergies No Known Allergies Allergy (Verified 01/04/17 09:11) Procedures/tests Complete & Pending: Procedures Performed prior 72 hours Category Date Time Status CT chest wo con [CT] Stat Cat Scan 01/04/17 09:30 Completed ECG 12 lead ECG [ECG] Routine Y 01/03/17 09:06 Completed ECG 12 lead ECG [ECG] Routine Y 01/04/17 07:00 Ordered ECG 12 lead ECG [ECG] Stat Y 01/03/17 09:06 Completed EV echocardiogram Routine Y 01/04/17 09:06 Completed Date of admission: 01/03/17 07:38 Primary care physician: PCP NO Consults: 01/03/17 09:06 Consult to Cardiac Rehabilitation-Phase1 [CONS] Routine Comment: Reason for Consult: AMI Call Completed: Yes Consult to Nurse Navigator [CONS] Routine Comment: 01/03/17 09:12 Consult to Hospitalist [CONS] Routine Consulting Provider: Hospitalist [place] Reason for Consult: Hyperglycemia Call Completed: No Consult to Nutrition [CONS] Routine Comment: Consulting Provider: NUTRITION Reason for Dietary Consult: Diet Education Discharging clinician: Dorian Duvall Anticipated date of discharge: 01/05/17 - Patient Status Disposition: Home, Self-Care Condition: Fair Functional capacity at discharge: independent ambulation Overall status at discharge: patient is progressing back to baseline - Discharge Instructions Follow Up With: Stacie Connelly SOLE LEVELER [Advanced Practice Nurse] - 01/11/17 12:00 pm NO,PCP [Primary Care Provider] - Additional Instructions: RISK FACTORS: STOP SMOKING: If you smoke, STOP. Smoking or tobacco use significantly increases your risk of heart disease because nicotine causes the arteries to narrow or constrict. It also causes fats to stick to the artery. Your chances of having a heart attack are greatly increased if you continue to smoke. For more information, call the education line for smoking cessation 2-044-WLJXSFU EAT A LOW FAT/CHOLESTEROL/SODIUM DIET: This diet may help reduce your chances of having a heart attack. LIFTING: Avoid lifting anything more than 10 pounds for 5-7 days Prior to straining, laughing, sneezing and/or coughing, apply manual pressure directly over insertion site. ACTIVITY: You may walk or climb stairs as tolerated You can resume sexual activity as tolerated In general, you are encouraged to engage in a minimum of 30 minutes or more of moderate intensity physical activity, such as brisk walking, daily or at least 3 -4 times weekly BATHING Do not submerge the site into water (bath tub, hot tub, swimming pool) for 1 week. This can be a source for infection into the blood stream. You may shower after 24 hours SITE CARE: After 24 hours, you may remove the dressing and leave the site open to air. Keep the site clean and dry. Clean gently and pat dry. You can expect bruising and tenderness that gradually resolve within a week or two. Return to work as instructed per your physician Resume driving as instructed per physician Keep all scheduled follow up appointments Resume medications as instructed IMPORTANT: If prescribed a Platelet Aggregation Inhibitor such as, Plavix, Brilinta or Effient: Duration of therapy is minimum one year These medications are often used in combination with Aspirin in prevention of future heart attacks Never discontinue unless consult with your Transit Bus Operator STROKE (CVA) Risk factors for a stroke are: Age, cigarette smoking, diabetes, excessive alcohol consumption, family history, high blood pressure, overweight, physical inactivity, prior stroke, heart attack, diagnosis of carotid artery stenosis or other artery disease. Warning signs: Sudden numbness or weakness of the face, arm or leg; especially on one side of the body, sudden confusion, trouble speaking or understanding, sudden trouble seeing in one or both eyes, sudden trouble walking, dizziness, loss of balance or coordination, sudden severe headache with no cause. Call 911 or go to the Emergency Room. CONGESTIVE HEART FAILURE: If you have been diagnosed with Congestive Heart Failure (CHF) and your symptoms return, make an appointment with your physician Weigh yourself daily. Notify your physician if you have a weight gain of two or more pounds in one day or five or more pounds in one week. If you experience any difficulty breathing, please call 911 BLEEDING: Although the risk of bleeding is minimal, it can happen. If you have any bleeding from the site, apply firm pressure above the puncture site for 10-15 minutes. If the bleeding does not stop, continue manual pressure and call 911 Contact your physician if: You develop a fever greater than 101 degrees Fahrenheit Your site becomes reddened or has any drainage You have an increase in pain or burning at the site or if a large knot forms at the site. If you experience chest pain, shortness of breath, dizziness, or extreme tiredness, stop the activity and rest. Please notify your physicians office if you experience any of these symptoms and they are not relieved by rest please call 911! - Diet and Activity Activity: increase activity as tolerated Diet: low fat, low cholesterol, low salt diet - Hospital Course Hospital course: Mr. Garcia is a 61 year old male admitted 01/03/17 for inferior STEMI, now s/p PCI to RCA (LJ x1) and PTCA to RPDA. LVEF 35% by v-gram. Echocardiogram shows EF 40-45%, segmental systolic dysfunction, midl LVDD. Importance of DAPT for one year without interruption discussed (aspirin/Brilinta). Pt verbalizes understanding. Continue statin/BB therapy. Attempted LAMAR-i, but BP will currently not tolerate. Re-evaluate as outpt. CHF education provided. Discharge home in stable condition. Follow-up with cardiology in 1 week. Smoking cessation counseling given. Chest CT showed 4mm DEEPAK nodules, hospitalist recommends follow up CT chest in 12 months. Time spent discussing smoking cessation with patient: 3 to 10 minutes - Time Spent with Patient Total time spent providing and/or coordinating discharge services: 30 minutes Physical Examination Vital Signs, Last 4 Hours Temp Pulse Resp BP Pulse Ox 01/05/17 12:00 98.5 F 01/05/17 11:59 76 16 102/64 96 Vital Signs Temp Pulse Resp BP Pulse Ox 01/05/17 12:00 98.5 F 01/05/17 11:59 76 16 102/64 96 01/05/17 08:10 98.3 F 01/05/17 08:00 91 01/05/17 04:00 97.2 F L 76 16 92/70 96 01/05/17 00:00 98.1 F 84 14 80/60 94 01/04/17 21:35 74 16 94 01/04/17 20:00 78 16 100/73 96 01/04/17 19:59 98 F 01/04/17 19:00 71 18 104/74 95 01/04/17 18:00 85 16 103/73 96 01/04/17 16:00 98.4 F 88 20 111/75 97 01/04/17 15:00 81 01/04/17 14:00 84 102/67 97 Intake and Output 01/04/17 01/05/17 01/05/17 23:59 07:59 15:59 Intake Total 200 / 200 240 / 240 Output Total 250 / 250 250 / 250 175 / 175 Balance -50 / -50 -250 / -250 65 / 65 Intake: Oral 200 / 200 240 / 240 Output: Urine 250 / 250 250 / 250 Catheter 175 / 175 Other: Meal Breakfast Percent of Meal Consumed 100% Stool Size Moderate Stool Consistency soft Stool Color Brown Weight 70.9 kg Patient Weight 01/05/17 23:59 Weight 70.9 kg General: Conversant, No Apparent Distress HEENT: Atraumatic, Normocephaly, Mucus Membranes Moist Neck: No JVD, Normal carotid pulses Cardiac: Reg Rate and Rhythm, Normal S1 and S2, No Murmur Lungs: Normal Breath Sounds, No Wheeze, Rales, Rhonchi Neuro: Alert and responsive, No focal deficits noted Abdomen: Soft, Non-Tender Skin: No rashes noted on visualized skin Musculoskeletal: No Chest Wall Tenderness Extremities: No Clubbing, No Cyanosis, No Edema, Normal Pulses - VTE Documentation of Mechanical Device: Graduated compression elastic hosiery
== END 2017-01-05 14:20 | disposition home or self-care (01) | DRG 247 ==
LOC: EMEROO 07:17 → ICNU 07:35
PROVIDERS: ADMIT Internal Medicine Interventional Cardiology; ATTEND Internal Medicine Interventional Cardiology